=== PATIENT | male | born 1950 | race Caucasian/White ===

== ENCOUNTER 2021-03-03 11:50 | Emergency (ER) | payer OTHER ==
[~2021-03-03] VITALS: Ht 175.3 cm; Wt 95.3 kg
[2021-03-03 11:52] VITALS: BP 132/79
[2021-03-03] MEDS ORDERED: LISINOPRIL-HCT1 EACH PO (11:58)
[2021-03-03] MEDS ORDERED: CARVEDILOL12.5 MG PO (11:58)
[2021-03-03] MEDS ORDERED: ERLEADA60 MG PO (11:58)
[2021-03-03] MEDS ORDERED: LIPITOR40 MG PO (11:58)
== END 2021-03-03 12:13 | disposition home or self-care (01) ==
LOC: M.ERS 11:50
DX: F41.9 Anxiety disorder, unspecified (principal); R55 Syncope and collapse; R06.4 Hyperventilation; Z79.899 Other long term (current) drug therapy; Z88.2 Allergy status to sulfonamides